=== PATIENT | male | born 1970 | race Asian ===

== ENCOUNTER 2018-06-03 06:19 | Day surgery (SDC) | payer OTHER ==
[2018-06-03] MEDS ORDERED: FENTAnyl 50 MCG/ML VIAL (08:01)
[2018-06-03] MEDS ORDERED: MIDAZOLAM 1 MG/ML 2 ML INJ ×2 (08:02)
== END 2018-06-03 10:40 | disposition home or self-care (01) ==
LOC: GIL 06:19
DX: Z12.11 Encounter for screening for malignant neoplasm of colon (principal); D12.6 Benign neoplasm of colon, unspecified; E11.9 Type 2 diabetes mellitus without complications
CPT/HCPCS: 45385; 82962; 88305